=== PATIENT | female | born 2000 | race Caucasian/White ===

== ENCOUNTER 2022-02-04 17:12 | Observation (INO) | payer BC, SELFPAY ==
--- NOTE | ~2022-02-04 | XR_ITS ---
XR lumbar spine 2-3V DATE: 02/04/2022 19:53 INDICATION: Low back pain and spasms following sports activity last night TECHNIQUE: AP, lateral, coned lateral lumbosacral views COMPARISON: None FINDINGS: The included lower thoracic and lumbar pedicles are intact. No fracture or bone destruction or spondylolisthesis. Lumbar and lumbosacral interspaces are relatively well preserved. The sacroili ac joints are normal. IMPRESSION: No significant abnormality Reviewed, dictated and finalized at location A. IMPRESSION: No significant abnormality
--- NOTE | ~2022-02-04 | CT_ITS ---
EXAMINATION: CT abdomen pelvis w con DATE: 02/04/2022 22:02 INDICATION: Lower back pain after playing with fall last night TECHNIQUE: Computed tomography (CT) of the abdomen and pelvis was performed with 100 CC Omnipaque 350 intravenous contrast. Automated exposure control and iterative reconstruction technique were employe d. Exam dose: 949.30 mGy-cm total exam DLP. COMPARISON: None. FINDINGS: Lingular calcified pulmonary nodule. The lung bases are clear of infiltrate or consolidatio n. Normal heart size. No pericardial or pleural effusion. There is an approximately 2 x 4 cm biconvex area of hypoattenuation in the marina hepatis area of the liver. Given the history of trauma, consider hepatic laceration or hematoma. MR liver examination or short-term follow-up CT imaging is recommended. The liver is otherwise unremarkable. The gallbladder is present. No gallbladder wall thickening. Norm al splenic size. No splenic mass lesion or laceration. The pancreas is unremarkable. No bile duct or pancreatic duct dilatation is evident. Normal morphology of the adrenal glands. No renal mass lesion or laceration hydroureteronephrosis. No urinary tract calculus. Normal caliber o f the abdominal aorta. No intraperitoneal or retroperitoneal or pelvic mass lesion or adenopathy or a scites. Normal appendix. No bowel obstruction or intraperitoneal free air. The uterus, adnexal areas and urinary bladder are unremarkable. Included skeletal structures are unremarkable. IMPRESSION: 2 x 4 cm biconcave hypoattenuating area and marina hepatis area, possibly secondary to hepatic lacerat ion or hematoma seminal consider MRI liver examination versus short-term follow-up CT abdomen examina tion Reviewed, dictated and finalized at Location [facility]. Reviewed, dictated and finalized at location A. IMPRESSION: 2 x 4 cm biconcave hypoattenuating area and marina hepatis area, possibly second jaja to hepatic laceration or hematoma seminal consider MRI liver examination ve rsus short-term follow-up CT abdomen examination
--- NOTE | ~2022-02-04 | MR_ITS ---
EXAMINATION: MR abdomen wo/w con DATE: 02/05/2022 08:11 INDICATION: Liver mass. TECHNIQUE: Magnetic resonance imaging (MRI) of the abdomen was performed without and with 19 mL Multi Kun intravenous contrast. Sequences included coronal T2-weighted FS FSE, coronal and axial FS FIEST A, axial T2-weighted FSE, coronal LAVA-flex, axial STIR FSE, axial DWI, axial dual-echo T1-weighted F SPGR, and axial LAVA. Postcontrast sequences included coronal LAVA-flex and a time course of axial LA VA. COMPARISON: CT abdomen and pelvis 02/04/2022 FINDINGS: The liver, gallbladder, spleen, adrenal glands, and kidneys are normal. Pancreas divisum is noted. Th ere are no pathologically enlarged lymph nodes. There is no free intraperitoneal fluid. There are no dilated loops of bowel. IMPRESSION: 1. Normal liver. Reviewed, dictated and finalized at location A. IMPRESSION: 1. Normal liver.
[2022-02-04 17:19] VITALS: BP 143/77; PULSE 108; RESP 16; TEMP 36.6; O2SAT 98
--- NOTE | 2022-02-04 19:07 | ED.BACK ---
HPI - Back Pain/Injury General Chief Complaint: Back Pain/Injury <Dolores Castellanos PA-C - Last Filed: 02/05/22 01:48> Stated Complaint: back injury <JUSTINE Madsen Last Filed: 02/05/22 01:48> Time Seen by Provider: 02/04/22 18:53 <JUSTINE Madsen Last Filed: 02/05/22 01:48> Source: patient <JUSTINE Madsen Last Filed: 02/05/22 01:48> Mode of arrival: ambulatory <JUSTINE Madsen [place] Filed: 02/05/22 01:48> Limitations: no limitations <JUSTINE Madsen [place] Filed: 02/05/22 01:48> History of Present Illness HPI Narrative: Patient is a 21-year-old female who presents to the ED with complaints of bilateral lower back pain. Patient reports she played a game a whiffle ball yesterday and developed diffuse lower back pain last night. She reports the pain is in her bilateral lower back, worse on the right, and radiates down her legs. She has had spasms at home. She denies any other pain or direct injury to her back while playing. She denies any fever, nausea, vomiting, abdominal pain, urinary sx's, bowel or bladder incontinence, weakness in her bilateral lower extremity, saddle anesthesia. She took Advil today around 2 PM without relief. <JUSTINE Madsen Last Filed: 02/05/22 01:48> Related Data Allergies/Adverse Reactions: Allergies Allergy/AdvReac Type Severity Reaction Status Date / Time No Known Allergies Allergy Verified 02/04/22 18:05 <Dolores Castellanos PA-C - Last Filed: 02/05/22 01:48> Review of Systems Review of Systems: CONSTITUTIONAL: Denies fever, chills, or sweats. CARDIOVASCULAR: Denies chest pain. GASTROINTESTINAL: Denies abdominal pain, nausea, vomiting, or diarrhea, bowel incontinence. GENITOURINARY: Denies dysuria or hematuria, bladder incontinence. SKIN: Denies rash. MUSCULOSKELETAL: Reports bilateral lower back pain and spasms, worse on right, radiating down BLE. Denies joint pain. NEUROLOGIC: Denies headache, numbness/tingling, or weakness in BLE. <Dolores Castellanos PA-C - Last Filed: 02/05/22 01:48> All systems reviewed & are unremarkable except as noted in HPI and below <Dolores Castellanos PA-C - Last Filed: 02/05/22 01:48> PMFSH Past Medical History Medical History: Medical History (Updated 02/04/22 @ 23:58 by Dolores Castellanos PA-C) No pertinent past medical history <Dolores Castellanos PA-C - Last Filed: 02/05/22 01:48> Surgical History Surgical History: Surgical History History of placement of ear tubes (~2003) <Dolores Castellanos PA-C - Last Filed: 02/05/22 01:48> Family History Family History: Family History Sibling ADHD Grandparent Diabetes mellitus Grandparent Diabetes mellitus Alcohol abuse Visual loss Mother Hearing loss <Dolores Castellanos PA-C - Last Filed: 02/05/22 01:48> Social History Social History: Social History Smoking status: Never smoker Alcohol intake: current Drinks per week: 1 Substance use: never Spiritual care concerns: No <Dolores Castellanos PA-C - Last Filed: 02/05/22 01:48> Exam Narrative: GENERAL: Well appearing, well-nourished, non-toxic, in no acute distress. HEAD: Normocephalic, atraumatic. NECK: Supple. No adenopathy, no masses. RESPIRATORY: Airway patent, respirations nonlabored. Clear to auscultation bilaterally, no rales, rhonchi, wheezing. CARDIOVASCULAR: Regular rate and rhythm without murmurs, rubs, or gallops. Peripheral pulses 2+ and equal bilaterally. ABDOMINAL: Soft, nontender to palpation in all quadrants, nondistended. Normoactive BS. No CVA tenderness to percussion. MUSCULOSKELETAL: Moves all extremities. Strength intact in BLE without gross deformities. Limited ROM of BLE due to pain. Positive straight leg raise bilaterally. No edema. Mild tenderness to palpation of bilateral lumbar
[2022-02-04] MEDS: diazePAM INJ (*CRX) 10 MG/2 ML SYRINGE 2 MG IM (19:36)
[2022-02-04] MEDS: KETOROLAC (*BKC) 60 MG/2 ML VIAL IM (19:37)
[2022-02-04] MEDS: ACETAMINOPHEN 500 MG TABLET 1000 MG PO (21:04)
[2022-02-04 21:25] LABS: Add Urine Microscopic? YES; Appearance Urine Cloudy (Clear); Bacteria Urine Trace /hpf; Bilirubin Urine Negative (Negative); Blood Urine Negative (Negative); Color Urine Yellow (Yellow); Glucose Urine UA Negative (Negative); Ketones Urine 1+ mg/dL (Negative); Leukocyte Esterase Ur 3+ LEU/UL (Negative); Mucus Urine Rare /lpf; Nitrate Urine Negative (Negative); Protein Urine Negative (Negative); Specific Grav Ur 1.021 (1.001-1.035); Squamous Epithelial Cell Urine Many /hpf (Few); Urobilinogen Urine Negative mg/dL (<2.0); WBC Urine 31-50 /hpf
[2022-02-04 21:56] LABS: Estimated CRCL calculation 114 ml/min; Estimated Glomerular Filt Rate > 60
[2022-02-04 22:01] LABS: Basophils Absolute Auto 0.1 K/mm3 (0.0-0.1); Basophils Percent Auto 0.5 % (0.2-1.2); Eosinophils Absolute Auto 0.1 K/mm3 (0-0.3); Eosinophils Percent Auto 0.5 % (0-4.4); Hematocrit 44.3 % (37.0-47.0); Hemoglobin 14.4 g/dL (12.0-15.0); Immature Granulocyte Absolute 0.03 K/mm3 (0.00-0.031); Immature Granulocyte Percent A 0.3 % (0-0.5); Lymphocytes Absolute Auto 2.37 K/mm3 (0.9-3.2); Lymphocytes Percent Auto 22.6 % (18.3-44.2); Mean Corpuscular HGB Conc 32.5 g/dl (32-36); Mean Corpuscular Hemoglobin 29.3 pg (26-34); Mean Platelet Volume 9.4 fl (7.4-10.4); Monocytes Absolute Auto 0.4 K/mm3 (0.1-0.6); Monocytes Percent Auto 3.8 % (2.6-8.5); Neutrophils Absolute Auto 7.6 K/mm3 (1.3-6.7); Neutrophils Percent Auto 72.3 % (45.5-73.1); Platelet Count Result 332 k/mm3 (150-375); Red Blood Count 4.92 M/mm3 (4.2-5.4); Red Cell Distribution Width 12.2 % (11.5-14.5); White Blood Count 10.5 K/mm3 (4.5-10.0)
[2022-02-04 22:52] LABS: Anion Gap 12 mmol/L (8-16); Blood Urea Nitrogen 13 mg/dL (8-21); Calcium 8.9 mg/dL (8.9-10.7); Carbon Dioxide 19 mmol/L (22-30); Chloride 106 mmol/L (98-107); Estimated CRCL calculation 129 ml/min; Estimated Glomerular Filt Rate > 60; Glucose 90 mg/dL (65-110); Potassium 3.7 mmol/L (3.4-5.0); Sodium 137 mmol/L (134-143)
[2022-02-04 23:54] LABS: Alanine Aminotransferase 19 U/L (4-35); Albumin Level 4.3 g/dL (3.7-5.6); Alkaline Phosphatase 81 U/L (45-116); Aspartate Amino Transferase 25 U/L (14-36); Bilirubin,Total 0.5 mg/dL (0.2-1.3)
[2022-02-05] VITALS (7 sets, daily range): BP systolic 104–135; BP diastolic 53–63; PULSE 99–105; RESP 16–18; TEMP 36.4–37.1; O2SAT 98–100; BMI 33.4
[2022-02-05 00:54] LABS: Hematocrit 40.2 % (37.0-47.0); Hemoglobin 13.3 g/dL (12.0-15.0)
[2022-02-05 01:09] LABS: Alanine Aminotransferase 18 U/L (4-35); Albumin Level 4.1 g/dL (3.7-5.6); Alkaline Phosphatase 70 U/L (45-116); Aspartate Amino Transferase 23 U/L (14-36); Bilirubin,Total 0.5 mg/dL (0.2-1.3)
--- NOTE | 2022-02-05 01:18 | ADMGEN ---
This patient, Marla Thomas, was admitted to 3 [facility] Surg Room 319-01. Patient/family oriented to hospital policies and general routines including ID bracelet, bed and alarms, visiting hours, pain management, procedures, bathroom and other care routines, personal items, smoking policy, room service/diet, and visiting hours. Information on how to activate the Rapid Response Team has been discussed. Patient/Family are encouraged to report perceived risks to care and to ask questions if they do not understand what they are told or what they should do.
[2022-02-05] MEDS: MORPHINE SULFATE (*CRX) 2 MG/ML INJ IV PUSH (01:20)
--- NOTE | 2022-02-05 10:22 | PM.SD2 ---
Same Day Admit/Disch: HPI History of Present Illness Chief complaint: Hepatic injury, laceration vs hematoma Narrative: Marla Thomas is a 21 year old female with no significant past medical history, who presented to the emergency department with complaints of bilateral lower back pain. She reportedly was playing whiffle ball yesterday and developed lower back pain after swinging. She denies any trauma to her trunk or fall that would suggest injury. She denies having this pain in the past. Her pain was cramping in nature and she felt like she was having spasms at home. Due to the pain, she presented to the ER for evaluation. CT scan of the abdomen pelvis showed a 2 x 4 cm biconcave hypoattenuating area and marina hepatis area, possibly secondary to hepatic laceration or hematoma, consider MRI for further evaluation. Labs were unremarkable. The ER provider spoke with trauma surgery at [place], who recommended no further intervention at this time but to monitor H&H and LFTs. The patient was given IV morphine in the ER which did help alleviate her pain. She was also given IM ketorolac and diazepam, which she felt did not improve symptoms. Urinalysis showed 3+ leukocytes and 31-50 wbc's with many squamous epithelial cells. She denies any dysuria, hematuria, frequency, or urgency. Urine culture pending. She was started on Rocephin IV. Our service was consulted by the ED physician for the possible liver laceration or hematoma. She was admitted in this setting. An MRI of the abdomen was ordered today and was normal. The patient is seen on the medical floor. She reports having lower back pain at a 4/10 on a pain scale. This pain is located bilaterally across the sacral area. No flank pain. No other complaints at this time. She does feel that her pain has improved since being admitted. [facility] Past Medical History Medical History No pertinent past medical history Surgical History Surgical History History of placement of ear tubes (~2003) Family History Family History Sibling ADHD Grandparent Diabetes mellitus Grandparent Diabetes mellitus Alcohol abuse Visual loss Mother Hearing loss Social History Social History Smoking status: Never smoker Alcohol intake: current Drinks per week: 1 Substance use: never Spiritual care concerns: No Same Day Admit/Disch: Med Pre-admit Medications Home Medications Medication Instructions Recorded Confirmed Type norethindrone 1 mg-ethinyl See Rx Instructions .ROUTE 09/04/21 02/05/22 Rx estradiol 20 mcg (24)-iron 75 mg .COMPLEX #84 tablet (4) tablet tramadol 50 mg PO Q4H PRN 3 Days #16 tablet 02/05/22 Rx Exam Const: General: comfortable, no acute distress, alert and awake Nutritional Appearance: average body habitus Orientation/consciousness: patient oriented x3 HENMT: Head: normocephalic and atraumatic Ears: hearing grossly normal bilaterally and external ears normal Mouth: Yes moist mucous membranes Eyes: General: appearance normal, both eyes and all related structures Sclera: sclerae normal Pupils: Equal, round and reactive pupils present EOM: EOMs intact bilaterally Neck: Neck: normal visual inspection and full ROM Resp: Effort & Inspection: able to speak in complete sentences and no respiratory distress Auscultation: clear to auscultation bilaterally Cardio: Rate: regular rate Rhythm: regular rhythm Heart sounds: S1 normal heart sound present and S2 normal heart sound present GI: Inspection: normal to inspection and non-distended GI Palp: Yes Soft to palpation, No Tenderness to palpation present (GI), No Guarding due to palpation present (GI), No Rigid due to palpation, Yes No hepatosplenomegaly present and No Rebound tenderness
[2022-02-05] MEDS: traMADol HCL (*CRX) 50 MG TABLET PO (11:17)
== END 2022-02-05 13:55 | disposition home or self-care (01) ==
LOC: ANHED 23:58 → ANH3MEDSUR 02-05 01:14
PROVIDERS: Physician Assistant; Admitting Provider Surgery; Emergency Provider Emergency Medicine; PCP Family Medicine; Visit Provider Surgery
DX: M54.50 Low back pain, unspecified (principal); R93.5 Abnormal findings on diagnostic imaging of other abdominal regions, including retroperitoneum; R82.90 Unspecified abnormal findings in urine
CPT/HCPCS: 36415; 72100; 74177; 74183; 80048; 80076; 81001; 81025; 85014; 85018; 85025; 87086; 87088; 96365; 96372; 96375; 99285; A9270; A9577; G0378; J0696; J1885; J2270; J3360; Q9967